=== PATIENT | female | born 2000 | race African-American/Black ===

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

== ENCOUNTER → 2019-02-17 | Outpatient (CLI) | payer OTHER ==
--- NOTE | 2019-02-17 15:19 | WOMENS IMAGING REPORT ---
EXAM DESCRIPTION: U/S BREAST UNILAT LIMITED COMPLETED DATE/TIME: 02/17/2019 1:43 pm REASON FOR STUDY: I88.9 NONSPECIFIC LYMPHADENITIS, UNSPECIFIED-LEFT; I88.9 NONSPECIFIC LYMPHADENITIS , UNSPECIFIED-RIGHT I88.9 NONSPECIFIC LYMPHADENITIS, UNSPECIFIED COMPARISON: None. TECHNIQUE: Real-time and static grayscale imaging performed of the right and left axilla targeted to the area of clinical concern. Selected color Doppler images recorded. LIMITATIONS: None. FINDINGS: Patient presents with a painful palpable nodule in the right axilla. Ultrasound of the right axilla was performed. Immediately deep to the skin surface, a hypoechoic com plex cystic structure with a halo of surrounding increased echogenicity is present, likely an infecte d or inflamed sebaceous cyst or sweat gland. This measures about 1.4 x 1.1 x 0.5 cm in size. Remainder of the right axilla is otherwise unremarkable. No adenopathy. Ultrasound of the left axilla was performed. No skin lesions. No subcutaneous lesions. No adenopat hy. IMPRESSION: Infected or inflamed dermal appendage in the right axilla, 1.4 x 1.1 x 0.5 cm in size. BIRAD: Negative. RECOMMENDATION: RECOMMENDED FOLLOW-UP: Follow-up as clinically indicated. COMMENT: The [employer] ([employer]) has developed recommendations for screening MRI of the breasts in certain patient populations, to be used in conjunction with mammography. Breast MRI s urveillance may be appropriate for women with more than 20% lifetime risk of developing breast cancer as determined by genetic testing, significant family history of the disease, or history of mantle r adiation for Hodgkins Disease. [employer] Practice Guidelines 2008. TECHNICAL DOCUMENTATION: JOB ID: [id number] [employer]- All Rights Reserved Reading location - IP/workstation name: [email or web address]
== END ==
LOC: WI 12:48
PROVIDERS: ATTEND Physician Assistant
DX: I88.9 Nonspecific lymphadenitis, unspecified (principal)
CPT/HCPCS: 76642

== ENCOUNTER → 2019-08-09 | Outpatient (CLI) | payer OTHER ==
--- NOTE | 2019-08-09 18:00 | WOMENS IMAGING REPORT ---
EXAM DESCRIPTION: U/S BREAST UNILAT LIMITED COMPLETED DATE/TIME: 08/09/2019 1:31 pm REASON FOR STUDY: LEFT BREAST PAIN N64.4 N64.4 MASTODYNIA COMPARISON: None. TECHNIQUE: Real-time and static grayscale imaging performed of the retroareolar left breast. Selecte d color Doppler images recorded. LIMITATIONS: None. FINDINGS: MASS: No mass identified. Normal glandular tissue. OTHER: No other significant finding. IMPRESSION: No suspicious findings detected by ultrasound. BIRAD: 1 Negative. RECOMMENDATION: RECOMMENDED FOLLOW-UP: Follow-up as clinically indicated. COMMENT: The [employer] ([employer]) has developed recommendations for screening MRI of the breasts in certain patient populations, to be used in conjunction with mammography. Breast MRI s urveillance may be appropriate for women with more than 20% lifetime risk of developing breast cancer as determined by genetic testing, significant family history of the disease, or history of mantle r adiation for Hodgkins Disease. [employer] Practice Guidelines 2008. TECHNICAL DOCUMENTATION: JOB ID: [id number] [employer]- All Rights Reserved Reading location - IP/workstation name: [email or web address]
== END ==
LOC: WI 12:50
PROVIDERS: ATTEND Physician Assistant
DX: N64.4 Mastodynia (principal)
CPT/HCPCS: 76642